=== PATIENT | female | born 1945 | race Asian ===

== ENCOUNTER → 2016-09-04 | Day surgery (SDC) | payer OTHER ==
[2016-09-03 12:40] LABS: Basophils # (auto) 0 uL; Basophils % (auto) 0.5 % (0.0-2.0); Eosinophils # (auto) 0.1 uL; Eosinophils % (auto) 1.3 % (0.0-7.0); Hematocrit 47.6 % (36.0-46.0); Hemoglobin 15.5 g/dL (12.2-16.2); Lymphocytes # (auto) 1.1 uL; Lymphocytes % (auto) 20.5 % (10.0-50.0); Mean Corpuscular Hemoglobin 30.6 pg (28.0-32.0); Mean Corpuscular Hgb Conc. 32.6 g/dL (32.0-36.0); Mean Platelet Volume 8.8 fL (7.4-10.4); Monocytes # (auto) 0.4 uL; Monocytes % (auto) 7.9 % (0.0-12.0); Neutrophils # (auto) 3.9 uL; Neutrophils % (auto) 69.8 % (37.0-80.0); Platelet Count (auto) 255 10^3/uL (140-450); Red Cell Distribution Width 12.6 % (11.6-16.0); White Blood Cell 5.6 10^3/uL (4.4-10.8)
[2016-09-03 12:52] LABS: INR 1.01 (0.9-1.15); Partial Thromboplastin Time 23.7 sec (22.64-33.71); Prothrombin Time 10.4 sec (9.37-12.3)
[2016-09-03 12:54] LABS: Urine Bilirubin Negative (Negative); Urine Blood Negative /uL (Negative); Urine Color Yellow (Yellow); Urine Glucose Normal (Normal); Urine Ketone Negative (Negative); Urine Nitrite Negative (Negative); Urine RBC 2 /hpf (0 - 4); Urine Squamous Epithelial Cell FEW /hpf (<5); Urine Urobilinogen Normal (Negative); Urine pH 5.5 (5.0-8.0)
[2016-09-03 13:02] LABS: BUN/Creatinine Ratio 20.6; Calcium 8.9 mg/dL (8.5-10.1); Potassium 4.2 mmol/L (3.5-5.1)
[~2016-09-04] VITALS: Ht 172.7 cm; Wt 65.8 kg
[~2016-09-04] MED LIST: ACETAMINOPHEN 500 MG TAB PO PRN; ATOR20TA50 PO; BUPIVACAINE 0.25% INJ 50ML VIAL ONE; CONJ ESTROGENS 0.625MG/GM VAG CRM 30GM PV ONE; CYAN1TAB14 PO; GELATIN 1 SPONGE SIZE 100 TOP ONE; HYDROmorphone HCL 2 MG/ML VL IV PRN; KETOROLAC TROMETH 30 MG/ML 1ML VIAL IV PRN; LACTCAP35 OR; LIDOCAINE 1% HCL (LOCAL ANESTH.) INJ 20ML MDV ONE; LIDOCAINE W/ EPINEPHRINE 1 % INJ 30ML ONE; MIDAZOLAM HCL 1MG/1ML-2 ML VIAL ONE; MORPHINE SULF INJ 2 MG/ML SYRINGE 1ML IV PRN; MULT-610 OR; OMEG100078 PO; ONDANSETRON HCL 4 MG/2 ML VIAL IV ONE; ONDANSETRON HCL 4 MG/2 ML VIAL IV PRN; PROG200C6 PO; PROPOFOL 10 MG/ML 20 ML IV ONE; SODIUM CHLORIDE 0.9% 1,000 ML IV SCH; THYR30TA PO; VASOPRESSIN 20 UNIT/ML ONE; VITA1TAB6 PO; [UNRECOGNIZED DRUG - CODE] OR; ceFAZolin 1GM VL ONE; ceFAZolin 1GM/50ML D5W 50 ML IV ONE; ePHEDrine SULFATE 50 MG/ML AMP IV PRN; fentaNYL CITRATE 100 MCG/2 ML VL ONE; hydrALAZINE HCL 20 MG/ML VL IV PRN
[2016-09-04 12:40] VITALS: BP 136/76
== END | disposition home or self-care (01) ==
LOC: SUR 08:06
PROVIDERS: ATTEND Obstetrics & Gynecology
DX: N81.10 Cystocele, unspecified (principal); N89.8 Other specified noninflammatory disorders of vagina; E78.00 Pure hypercholesterolemia, unspecified; K21.9 Gastro-esophageal reflux disease without esophagitis; E03.9 Hypothyroidism, unspecified; N95.8 Other specified menopausal and perimenopausal disorders
CPT/HCPCS: 36415; 57106; 57240; 57288; 80048; 81001; 85025; 85049; 85610; 85730; 87086; 87088; 87186; C1771; J0690; J2001; J2250; J2704; J3010; J3490

== ENCOUNTER 2019-01-18 12:54 | Emergency (ER) | payer OTHER ==
[~2019-01-18] VITALS: Ht 172.7 cm; Wt 65.8 kg
[~2019-01-18 12:54] MED LIST changes: -ACETAMINOPHEN 500 MG TAB PO PRN; -BUPIVACAINE 0.25% INJ 50ML VIAL ONE; -CONJ ESTROGENS 0.625MG/GM VAG CRM 30GM PV ONE; -GELATIN 1 SPONGE SIZE 100 TOP ONE; -HYDROmorphone HCL 2 MG/ML VL IV PRN; -KETOROLAC TROMETH 30 MG/ML 1ML VIAL IV PRN; -LIDOCAINE 1% HCL (LOCAL ANESTH.) INJ 20ML MDV ONE; -LIDOCAINE W/ EPINEPHRINE 1 % INJ 30ML ONE; -MIDAZOLAM HCL 1MG/1ML-2 ML VIAL ONE; -MORPHINE SULF INJ 2 MG/ML SYRINGE 1ML IV PRN; -ONDANSETRON HCL 4 MG/2 ML VIAL IV ONE; -ONDANSETRON HCL 4 MG/2 ML VIAL IV PRN; -PROPOFOL 10 MG/ML 20 ML IV ONE; -SODIUM CHLORIDE 0.9% 1,000 ML IV SCH; -VASOPRESSIN 20 UNIT/ML ONE; -ceFAZolin 1GM VL ONE; -ceFAZolin 1GM/50ML D5W 50 ML IV ONE; -ePHEDrine SULFATE 50 MG/ML AMP IV PRN; -fentaNYL CITRATE 100 MCG/2 ML VL ONE; -hydrALAZINE HCL 20 MG/ML VL IV PRN
[2019-01-18 14:50] VITALS: BP 142/81
[2019-01-18] MEDS ORDERED: LIDOCAINE VISCOUS 2% 15ML UD PO ONE (16:00)
== END 2019-01-18 16:09 | disposition home or self-care (01) ==
LOC: ER 13:15
DX: J02.9 Acute pharyngitis, unspecified (principal); E78.5 Hyperlipidemia, unspecified; E07.9 Disorder of thyroid, unspecified; Z79.899 Other long term (current) drug therapy
CPT/HCPCS: 71046